=== PATIENT | male | born 1980 | race Caucasian/White ===

== ENCOUNTER 2016-09-06 11:21 | Emergency (ER) | payer SELFPAY ==
[~2016-09-06] VITALS: Ht 177.8 cm; Wt 90.9 kg
[2016-09-06 11:26] VITALS: TEMP 97
[2016-09-06 12:02] LABS: MEAN CELL VOLUME 87 fl (80.0-100.0); MEAN CORPUSCULAR HGB CONC 35 g/dl (33.0-37.0); MEAN PLATELET VOLUME 10.3 fl (7.4-10.4); PLATELET COUNT 213 K/mm3 (130-400); RED BLOOD COUNT 6.09 M/mm3 (4.20-5.60); REDCELL DISTRIBUTION WIDTH-CV 13.2 % (11.5-14.5); WHITE BLOOD COUNT 12.4 K/mm3 (4.8-10.8)
[2016-09-06 12:04] LABS: HEMATOCRIT 52.8 % (42.0-52.0); HEMOGLOBIN 18.4 g/dl (13.5-18.0); MEAN CORPUSCULAR HEMOGLOBIN 30 pg (27.0-31.0)
[2016-09-06 12:05] LABS: ADD PATHOLOGY DIFF REVIEW NO
[2016-09-06 12:07] LABS: ARTERIAL BLD GAS O2 SATURATION 96.7 % (92-100); ARTERIAL BLD GAS TCO2 CT 22.9; ARTERIAL BLOOD GAS BASE EXCESS -0.3 (-2-2); ARTERIAL BLOOD GAS PHT 7.47 C (7.35-7.45); ARTERIAL BLOOD GAS PO2 78.7 mmHg (80-100); ARTERIAL BLOOD GAS PO2T 78.7 (80-100); ARTERIAL BLOOD GAS pH 7.47 (7.35-7.45); OXYHEMOGLOBIN 90.2 %
[2016-09-06 12:08] LABS: ALLEN TEST YES; ALLENS TEST RESULT PASS; ATS? YES
[2016-09-06 12:11] LABS: PROTHROMBIN TIME 11.4 SECONDS (9.7-12.8)
[2016-09-06 12:13] LABS: PARTIAL THROMBOPLASTIN TIME 35.6 SECONDS (26.0-37.0)
[2016-09-06 12:17] LABS: ADJUSTED CALCIUM 9.2 mg/dL (8.4-10.2); ALANINE AMINOTRANSFERASE 53 U/L (21-72); ALBUMIN 4.3 gm/dL (3.5-5.0); ALKALINE PHOSPHATASE 86 U/L (50-136); ANION GAP 13 mmol/L (7-16); BILIRUBIN,TOTAL 0.6 mg/dL (0.0-1.0); BLOOD UREA NITROGEN 8 mg/dL (9-20); CALCIUM 9.4 mg/dL (8.4-10.2); CARBON DIOXIDE 23 mmol/L (22-30); CHLORIDE 102 mmol/L (98-107); CREATININE, serum 0.81 mg/dL (0.66-1.25); GLUCOSE 106 mg/dL (74-106); POTASSIUM 3.7 mmol/L (3.4-5.0); SODIUM 138 mmol/L (137-145); TOTAL PROTEIN 7.9 gm/dL (6.4-8.2)
[2016-09-06 12:18] LABS: BAND 3 % (0-10); BASOPHIL 1 % (0-2); EOSINOPHIL 3 % (0-4); NEUTROPHILS 64 % (42.0-75.2); PLATELET ESTIMATE NORMAL (NORMAL); TOTAL CELLS COUNTED 100
[2016-09-06 12:30] LABS: TROPONIN-I < 0.012 ng/mL (0.000-0.034)
[2016-09-06] MEDS ORDERED: PRINIVIL20 MG PO (13:09)
[2016-09-06] MEDS ORDERED: ATIVAN 0.50.5 MG/TAB PO (13:09)
[2016-09-06 13:50] VITALS: BP 155/109; PULSE 87
== END 2016-09-06 13:52 | disposition home or self-care (01) ==
LOC: COL.ER 11:21
PROVIDERS: Family Medicine
DX: I10 Essential (primary) hypertension (principal); E11.9 Type 2 diabetes mellitus without complications; I34.1 Nonrheumatic mitral (valve) prolapse; F17.210 Nicotine dependence, cigarettes, uncomplicated
CPT/HCPCS: J2060